=== PATIENT | male | born 1980 | race Two or more races ===

== ENCOUNTER 2020-04-14 21:42 | Inpatient (IN) | payer MEDICAID ==
[~2020-04-14] VITALS: Ht 149.9 cm; Wt 29.1 kg
[2020-04-14] MEDS ORDERED: SODIUM CHLORIDE 0.9% 1,000 ML IV ONE (22:30)
[2020-04-14 23:40] LABS: Basophils # (auto) 0 10 ^3/uL (0-0.2); Basophils % (auto) 0.2 % (0.0-2.0); Eosinophils # (auto) 0 10 ^3/uL (0-0.8); Eosinophils % (auto) 1.2 % (0.0-7.0); Hematocrit 42.2 % (41.0-53.0); Hemoglobin 14.4 g/dL (13.5-17.5); Lymphocytes # (auto) 1.1 10 ^3/uL (0.4-5.4); Lymphocytes % (auto) 26.8 % (10.0-50.0); Mean Corpuscular Hemoglobin 31.7 pg (28.0-32.0); Mean Corpuscular Hgb Conc. 34.2 g/dL (32.0-36.0); Mean Corpuscular Volume 92.6 fL (80.0-100.0); Monocytes # (auto) 0.4 10 ^3/uL (0-1.3); Monocytes % (auto) 8.8 % (0.0-12.0); Neutrophils # (auto) 2.5 10 ^3/uL (1.6-8.6); Nucleated Red Blood Cells % 0.1 %; Platelet Count (auto) 90 10^3/uL (140-450); Red Blood Cells 4.56 10^6/uL (4.5-5.90); Red Cell Distribution Width 14.6 % (11.8-14.3)
[2020-04-15] LABS: Albumin 3.2 g/dL (3.4-5.0); Calcium 8.8 mg/dL (8.5-10.1); Potassium 3.5 mmol/L (3.5-5.1)
[2020-04-15 00:03] LABS: BUN/Creatinine Ratio 29.6; Bilirubin, Total 0.3 mg/dL (0.2-1.0); Total Protein 8.2 g/dL (6.4-8.2)
[2020-04-15] MEDS ORDERED: levoFLOXacin 750MG 150 ML IV ONE (02:00)
[2020-04-15] MEDS ORDERED: SODIUM CHLORIDE 0.9% 1,000 ML IV ONE (02:00)
[2020-04-15 03:06] LABS: Lactic Acid w/Reflex 2.1 mmol/L (0.4-2.0)
[2020-04-15] MEDS ORDERED: LEVE100S9 PO (06:58)
[2020-04-15] MEDS ORDERED: PHEN32.44 PO (06:58)
[2020-04-15] MEDS ORDERED: DOCUSATE SOD 100 MG CAP PO PRN (07:00)
[2020-04-15] MEDS ORDERED: NITROGLYCERIN 0.4 MG SL TAB SL PRN (07:00)
[2020-04-15] MEDS ORDERED: HYDROcodone-ACET 5/325MG TAB PO PRN (07:00)
[2020-04-15] MEDS ORDERED: ONDANSETRON HCL 4 MG/2 ML VIAL IV PRN (07:00)
[2020-04-15] MEDS ORDERED: MORPHINE SULF INJ 2 MG/ML SYRINGE 1ML IV PRN (07:00)
[2020-04-15] MEDS ORDERED: ACETAMINOPHEN 325 MG TAB PO PRN (07:00)
[2020-04-15] MEDS ORDERED: MORPHINE SULFATE 4 MG/ML SYR/VIAL IV PRN (07:00)
[2020-04-15] MEDS: Ensure Enlive Chocolate 8oz Bottle PO SCH ×4 (08:00→18:53)
[2020-04-15 10:39] LABS: CRP High Sensitivity 7.67 mg/dL (< 0.3)
[2020-04-15] MEDS: levETIRAcetam 500 MG/5ML ORAL SOLN UD PO SCH ×2 (11:08→23:35)
[2020-04-15] MEDS: AZITHROMYCIN 500MG/ 250ML 250 ML IV SCH (11:08)
[2020-04-15] MEDS: ZINC SULFATE 220mg CAP or TAB PO SCH (11:26)
[2020-04-15] MEDS: FAMOTIDINE 20 MG TAB PO SCH ×2 (11:26→23:35)
[2020-04-15] MEDS: ASCORBIC ACID 500 MG TAB PO SCH ×2 (11:26→23:35)
[2020-04-15] MEDS: MULTIPLE VITAMIN TAB PO SCH (11:26)
[2020-04-15] MEDS: PHENobarbital 32.4 MG TAB PO SCH (23:34)
[2020-04-16 08:44] LABS: Basophils # (auto) 0 10 ^3/uL (0-0.2); Basophils % (auto) 0.3 % (0.0-2.0); Eosinophils # (auto) 0 10 ^3/uL (0-0.8); Eosinophils % (auto) 1.7 % (0.0-7.0); Hematocrit 38.5 % (41.0-53.0); Hemoglobin 12.9 g/dL (13.5-17.5); Lymphocytes # (auto) 1.1 10 ^3/uL (0.4-5.4); Lymphocytes % (auto) 42.5 % (10.0-50.0); Mean Corpuscular Hemoglobin 31.3 pg (28.0-32.0); Mean Corpuscular Hgb Conc. 33.5 g/dL (32.0-36.0); Mean Corpuscular Volume 93.6 fL (80.0-100.0); Monocytes # (auto) 0.2 10 ^3/uL (0-1.3); Monocytes % (auto) 9.3 % (0.0-12.0); Neutrophils # (auto) 1.2 10 ^3/uL (1.6-8.6); Neutrophils % (auto) 46.2 % (37.0-80.0); Nucleated Red Blood Cells % 0.3 %; Platelet Count (auto) 109 10^3/uL (140-450); Red Blood Cells 4.12 10^6/uL (4.5-5.90); Red Cell Distribution Width 14.6 % (11.8-14.3); White Blood Cell 2.6 10^3/uL (4.4-10.8)
[2020-04-16 09:01] LABS: Albumin 2.8 g/dL (3.4-5.0); Calcium 8.5 mg/dL (8.5-10.1); Magnesium 2.1 mg/dL (1.6-2.6)
[2020-04-16 09:09] LABS: Bilirubin, Total 0.3 mg/dL (0.2-1.0); CRP High Sensitivity 3.74 mg/dL (< 0.3); Phosphorus 1.7 mg/dL (2.5-4.90); Total Protein 7.2 g/dL (6.4-8.2)
[2020-04-16 09:16] LABS: Potassium 2.9 mmol/L (3.5-5.1)
[2020-04-16] MEDS: POTASSIUM EFFERVESENT TAB 25 MEQ GT ONE ×2 (09:45→10:10)
[2020-04-16] MEDS: MULTIPLE VITAMIN TAB PO SCH (10:00)
[2020-04-16] MEDS: AZITHROMYCIN 500MG/ 250ML 250 ML IV SCH (10:10)
[2020-04-16] MEDS: Ensure Enlive Chocolate 8oz Bottle PO SCH ×3 (10:10→18:54)
[2020-04-16] MEDS: FAMOTIDINE 20 MG TAB PO SCH ×2 (10:12→22:50)
[2020-04-16] MEDS: ZINC SULFATE 220mg CAP or TAB PO SCH (10:13)
[2020-04-16] MEDS: levETIRAcetam 500 MG/5ML ORAL SOLN UD PO SCH ×2 (10:56→22:47)
[2020-04-16] MEDS: ASCORBIC ACID 500 MG TAB PO SCH ×2 (11:02→22:50)
[2020-04-16] MEDS ORDERED: POTASSIUM EFFERVESENT TAB 25 MEQ GT ONE ×2 (14:00→14:30)
[2020-04-16] MEDS: PHENobarbital 32.4 MG TAB PO SCH (22:47)
[2020-04-17] VITALS: BP 117/71
[2020-04-17 00:25] VITALS: BP 121/77
[2020-04-17] MEDS: Ensure Enlive Chocolate 8oz Bottle PO SCH ×3 (07:35→18:00)
[2020-04-17 07:51] VITALS: BP 116/64
[2020-04-17] MEDS: FAMOTIDINE 20 MG TAB PO SCH ×2 (10:00→22:51)
[2020-04-17] MEDS: ZINC SULFATE 220mg CAP or TAB PO SCH (10:20)
[2020-04-17] MEDS: MULTIPLE VITAMIN TAB PO SCH (10:22)
[2020-04-17] MEDS: AZITHROMYCIN 500MG/ 250ML 250 ML IV SCH (10:22)
[2020-04-17] MEDS: ASCORBIC ACID 500 MG TAB PO SCH ×2 (10:22→22:51)
[2020-04-17] MEDS: levETIRAcetam 500 MG/5ML ORAL SOLN UD PO SCH ×2 (10:39→22:51)
[2020-04-17] MEDS ORDERED: POTASSIUM PHOSPHATE 44 MEQ in D5W 5% 250 ML IV ONE (15:30)
[2020-04-17] MEDS ORDERED: POTASSIUM CHL 20MEQ/100ML 100 ML IV ONE (15:30)
[2020-04-17 16:00] VITALS: BP 118/77
[2020-04-17] MEDS: PHENobarbital 32.4 MG TAB PO SCH (22:51)
[2020-04-18] VITALS: BP 117/71
[2020-04-18 00:07] VITALS: BP 117/71
[2020-04-18 07:26] LABS: Magnesium 2.1 mg/dL (1.6-2.6)
[2020-04-18 07:29] LABS: Phosphorus 3.8 mg/dL (2.5-4.90)
[2020-04-18] MEDS: Ensure Enlive Chocolate 8oz Bottle PO SCH (07:40)
[2020-04-18 08:00] VITALS: BP 135/78
[2020-04-18] MEDS: AZITHROMYCIN 500MG/ 250ML 250 ML IV SCH (10:18)
[2020-04-18] MEDS: ZINC SULFATE 220mg CAP or TAB PO SCH (10:18)
[2020-04-18] MEDS: FAMOTIDINE 20 MG TAB PO SCH (10:18)
[2020-04-18] MEDS: MULTIPLE VITAMIN TAB PO SCH (10:19)
[2020-04-18] MEDS: ASCORBIC ACID 500 MG TAB PO SCH (10:20)
[2020-04-18] MEDS: levETIRAcetam 500 MG/5ML ORAL SOLN UD PO SCH (10:20)
[2020-04-18 11:37] VITALS: BP 130/70
[2020-04-18 12:49] LABS: Basophils # (auto) 0 10 ^3/uL (0-0.2); Basophils % (auto) 0.4 % (0.0-2.0); Eosinophils # (auto) 0.1 10 ^3/uL (0-0.8); Eosinophils % (auto) 4.4 % (0.0-7.0); Hematocrit 38.1 % (41.0-53.0); Hemoglobin 13.1 g/dL (13.5-17.5); Lymphocytes # (auto) 1.1 10 ^3/uL (0.4-5.4); Lymphocytes % (auto) 41.5 % (10.0-50.0); Mean Corpuscular Hemoglobin 31.4 pg (28.0-32.0); Mean Corpuscular Hgb Conc. 34.3 g/dL (32.0-36.0); Mean Corpuscular Volume 91.7 fL (80.0-100.0); Monocytes # (auto) 0.2 10 ^3/uL (0-1.3); Monocytes % (auto) 9.1 % (0.0-12.0); Neutrophils # (auto) 1.2 10 ^3/uL (1.6-8.6); Neutrophils % (auto) 44.6 % (37.0-80.0); Nucleated Red Blood Cells % 0.2 %; Platelet Count (auto) 141 10^3/uL (140-450); Red Blood Cells 4.15 10^6/uL (4.5-5.90); Red Cell Distribution Width 14.3 % (11.8-14.3); White Blood Cell 2.7 10^3/uL (4.4-10.8)
== END 2020-04-18 13:40 | disposition home or self-care (01) | DRG 137 ==
LOC: ER 21:44 → OVERFLOW 21:45 → TELE-EAST 04-16 23:19
PROVIDERS: ADMIT Nurse Practitioner; ATTEND Nurse Practitioner
DX: U07.1 COVID-19 (principal); J12.82 Pneumonia due to coronavirus disease 2019; G80.9 Cerebral palsy, unspecified; E86.0 Dehydration; J98.11 Atelectasis; G40.901 Epilepsy, unspecified, not intractable, with status epilepticus; R53.2 Functional quadriplegia; R63.6 Underweight; R19.7 Diarrhea, unspecified; R64 Cachexia; R00.0 Tachycardia, unspecified; Z74.01 Bed confinement status; Z68.1 Body mass index [BMI] 19.9 or less, adult; Z91.81 History of falling; Z88.0 Allergy status to penicillin
CPT/HCPCS: 36415; 71045; 71250; 80053; 82728; 83605; 83615; 83735; 84100; 84132; 85025; 85379; 86141; 87040; 87426; 93005; 93306; 93970; 96361; 96365; 96367; G0378; J1956; J7060

== ENCOUNTER 2020-05-12 00:39 | Inpatient (IN) | payer MEDICAID ==
[~2020-05-12] VITALS: Ht 139.7 cm; Wt 39.7 kg
[~2020-05-12 00:39] MED LIST: LEVE100S9 GT; PHEN32.44 GT
[2020-05-12] MEDS: SODIUM CHLORIDE 0.9% 500 ML IV ONE ×2 (02:00→03:33)
[2020-05-12 02:26] LABS: Basophils # (auto) 0 10 ^3/uL (0-0.2); Basophils % (auto) 0.4 % (0.0-2.0); Eosinophils # (auto) 0 10 ^3/uL (0-0.8); Hematocrit 44.9 % (41.0-53.0); Hemoglobin 15.1 g/dL (13.5-17.5); Lymphocytes # (auto) 1.7 10 ^3/uL (0.4-5.4); Lymphocytes % (auto) 16.3 % (10.0-50.0); Mean Corpuscular Hgb Conc. 33.7 g/dL (32.0-36.0); Mean Corpuscular Volume 92.1 fL (80.0-100.0); Monocytes # (auto) 0.6 10 ^3/uL (0-1.3); Monocytes % (auto) 5.6 % (0.0-12.0); Neutrophils % (auto) 77.7 % (37.0-80.0); Nucleated Red Blood Cells % 0.4 %; Platelet Count (auto) 121 10^3/uL (140-450); Red Blood Cells 4.87 10^6/uL (4.5-5.90); Red Cell Distribution Width 15.2 % (11.8-14.3); White Blood Cell 10.3 10^3/uL (4.4-10.8)
[2020-05-12 02:46] LABS: Alanine Aminotransferase 41 U/L (16-61); Albumin 3.8 g/dL (3.4-5.0); Anion Gap 7 (5-15); BUN/Creatinine Ratio 35.1; Blood Alcohol < 3.0 mg/dL (0-5); Blood Urea Nitrogen 27 mg/dL (7-18); Calcium 9.2 mg/dL (8.5-10.1); Carbon Dioxide 26 mmol/L (21-32); Chloride 104 mmol/L (98-107); GFR African American 145 mL/min; GFR Non-African American 120 mL/min; Glucose 98 mg/dL (74-106); Magnesium 2.1 mg/dL (1.6-2.6); Potassium 3.6 mmol/L (3.5-5.1); Sodium 137 mmol/L (136-145)
[2020-05-12 02:49] LABS: Alcohol, Urine < 3.0 mg/dL (0-10); Amphetamine Screen, Urine NEGATIVE (NEGATIVE); Barbiturate Scree,Urine POSITIVE (NEGATIVE); Benzodiazephine Screen, Urine NEGATIVE (NEGATIVE); Cannabinoid Screen, Urine NEGATIVE (NEGATIVE); Cocaine Screen, Urine NEGATIVE (NEGATIVE); Opiate Scree,Urine NEGATIVE (NEGATIVE); Phencyclidine Screen, Urine NEGATIVE (NEGATIVE)
[2020-05-12 02:51] LABS: INR 1.23 (0.9-1.15); Partial Thromboplastin Time 24.4 sec (23.0-31.2)
[2020-05-12 02:53] LABS: Alkaline Phosphatase 210 U/L (45-117); Aspartate Aminotransferase 30 U/L (15-37); Bilirubin, Total 0.2 mg/dL (0.2-1.0); Total Protein 8.3 g/dL (6.4-8.2)
[2020-05-12 02:56] LABS: Urine Amorphous Crystal MOD /hpf (None Seen); Urine Bacteria FEW /hpf (None Seen); Urine Blood Negative /uL (Negative); Urine Hyaline Cast FEW /lpf (0 - 2); Urine Specific Gravity 1.016 (1.001-1.035); Urine WBC 1 /hpf (0 - 3)
[2020-05-12 03:09] LABS: Lactate Dehydrogenase 250 U/L (87-241)
[2020-05-12] MEDS ORDERED: IOHEXOL 350 MG/ML 100ML IJ ONE (03:44)
[2020-05-12] MEDS ORDERED: metroNIDAZOLE 500MG/100ML 100 ML IV ONE (05:15)
[2020-05-12] MEDS ORDERED: SODIUM CHLORIDE 0.9% 500 ML IV ONE (05:15)
[2020-05-12] MEDS ORDERED: CEFTRIAXONE SODIUM 2 GM in D5W 5% 50 ML IV ONE (05:15)
[2020-05-12] MEDS ORDERED: SODIUM CHLORIDE 0.9% 1,000 ML IV ONE (07:30)
[2020-05-12] MEDS: MULTIPLE VITAMIN TAB PO SCH (08:52)
[2020-05-12] MEDS: DOCUSATE SOD 100 MG CAP PO SCH ×2 (08:52→22:00)
[2020-05-12] MEDS: FAMOTIDINE 20 MG TAB PO SCH ×2 (08:53→22:54)
[2020-05-12] MEDS: ASCORBIC ACID 500 MG TAB PO SCH ×2 (08:53→22:55)
[2020-05-12] MEDS ORDERED: IPRA0.00 IN (10:17)
[2020-05-12] MEDS ORDERED: CHOL20007 GT (10:17)
[2020-05-12] MEDS: AZITHROMYCIN 500MG/ 250ML 250 ML IV SCH (10:19)
[2020-05-12] MEDS: Ensure HIGH Protein Vanilla 8oz Bottle PO SCH ×3 (12:00→22:54)
[2020-05-12] MEDS: levETIRAcetam 500 MG/5ML ORAL SOLN UD GT SCH ×2 (12:45→22:53)
[2020-05-12 16:28] VITALS: BP 153/89
[2020-05-12 22:00] VITALS: BP 135/83
[2020-05-12] MEDS ORDERED: PHENobarbital 32.4 MG TAB PO SCH (22:00)
[2020-05-12] MEDS: PHENobarbital 32.4 MG TAB PO SCH (22:54)
[2020-05-13 05:00] VITALS: BP 119/69
[2020-05-13] MEDS: Ensure HIGH Protein Vanilla 8oz Bottle PO SCH ×4 (05:49→23:30)
[2020-05-13 06:27] LABS: Basophils # (auto) 0 10 ^3/uL (0-0.2); Basophils % (auto) 1.1 % (0.0-2.0); Eosinophils # (auto) 0 10 ^3/uL (0-0.8); Eosinophils % (auto) 0.4 % (0.0-7.0); Hematocrit 40.8 % (41.0-53.0); Hemoglobin 13.5 g/dL (13.5-17.5); Lymphocytes # (auto) 1.5 10 ^3/uL (0.4-5.4); Lymphocytes % (auto) 41.4 % (10.0-50.0); Mean Corpuscular Hemoglobin 31.4 pg (28.0-32.0); Mean Corpuscular Hgb Conc. 33.1 g/dL (32.0-36.0); Mean Corpuscular Volume 94.8 fL (80.0-100.0); Monocytes # (auto) 0.3 10 ^3/uL (0-1.3); Monocytes % (auto) 7.1 % (0.0-12.0); Neutrophils # (auto) 1.8 10 ^3/uL (1.6-8.6); Nucleated Red Blood Cells % 0.3 %; Platelet Count (auto) 83 10^3/uL (140-450); Red Cell Distribution Width 15.4 % (11.8-14.3); White Blood Cell 3.7 10^3/uL (4.4-10.8)
[2020-05-13] MEDS ORDERED: VANCOMYCIN PER PHARMACY 0 MG IV SCH (06:30)
[2020-05-13 06:46] LABS: Potassium 3.4 mmol/L (3.5-5.1)
[2020-05-13 07:06] LABS: Albumin 2.9 g/dL (3.4-5.0); Bilirubin, Total 0.4 mg/dL (0.2-1.0); Calcium 8.1 mg/dL (8.5-10.1); Total Protein 6.8 g/dL (6.4-8.2)
[2020-05-13 07:58] VITALS: BP 143/75
[2020-05-13] MEDS ORDERED: cefTRIAXone 1GM/50ML D5W 50 ML IV SCH (09:00)
[2020-05-13] MEDS: DOCUSATE SOD 100 MG CAP PO SCH ×2 (11:02→21:37)
[2020-05-13] MEDS: AZITHROMYCIN 500MG/ 250ML 250 ML IV SCH (11:02)
[2020-05-13] MEDS: FAMOTIDINE 20 MG TAB PO SCH ×2 (11:03→21:41)
[2020-05-13] MEDS: ASCORBIC ACID 500 MG TAB PO SCH ×2 (11:03→21:40)
[2020-05-13] MEDS: MULTIPLE VITAMIN TAB PO SCH (11:03)
[2020-05-13] MEDS: levETIRAcetam 500 MG/5ML ORAL SOLN UD GT SCH ×2 (11:58→21:36)
[2020-05-13] MEDS: VANCOMYCIN 750mg/250ml 250 ML IV SCH ×2 (11:58→21:36)
[2020-05-13 16:41] VITALS: BP 135/81
[2020-05-13] MEDS: PHENobarbital 32.4 MG TAB PO SCH (21:36)
[2020-05-13 22:00] VITALS: BP 138/79
[2020-05-14] MEDS: VANCOMYCIN 750mg/250ml 250 ML IV SCH (03:37)
[2020-05-14 05:00] VITALS: BP 118/55
[2020-05-14] MEDS: Ensure HIGH Protein Vanilla 8oz Bottle PO SCH ×4 (06:33→22:32)
[2020-05-14 07:23] LABS: BUN/Creatinine Ratio 19.4; Calcium 8.7 mg/dL (8.5-10.1); Potassium 3.5 mmol/L (3.5-5.1)
[2020-05-14 08:07] LABS: Basophils # (auto) 0 10 ^3/uL (0-0.2); Basophils % (auto) 0.6 % (0.0-2.0); Eosinophils # (auto) 0 10 ^3/uL (0-0.8); Eosinophils % (auto) 0.5 % (0.0-7.0); Hematocrit 46.6 % (41.0-53.0); Hemoglobin 15.4 g/dL (13.5-17.5); Lymphocytes # (auto) 1.7 10 ^3/uL (0.4-5.4); Lymphocytes % (auto) 40.6 % (10.0-50.0); Mean Corpuscular Hgb Conc. 33.1 g/dL (32.0-36.0); Mean Corpuscular Volume 93.5 fL (80.0-100.0); Monocytes # (auto) 0.2 10 ^3/uL (0-1.3); Monocytes % (auto) 5.2 % (0.0-12.0); Neutrophils # (auto) 2.3 10 ^3/uL (1.6-8.6); Neutrophils % (auto) 53.1 % (37.0-80.0); Nucleated Red Blood Cells % 0.3 %; Platelet Count (auto) 91 10^3/uL (140-450); Red Blood Cells 4.98 10^6/uL (4.5-5.90); Red Cell Distribution Width 15.6 % (11.8-14.3); White Blood Cell 4.3 10^3/uL (4.4-10.8)
[2020-05-14 08:51] VITALS: BP 133/84
[2020-05-14] MEDS: levETIRAcetam 500 MG/5ML ORAL SOLN UD GT SCH ×2 (09:59→22:31)
[2020-05-14] MEDS: FAMOTIDINE 20 MG TAB PO SCH ×2 (09:59→22:31)
[2020-05-14] MEDS: AZITHROMYCIN 500MG/ 250ML 250 ML IV SCH (09:59)
[2020-05-14] MEDS: MULTIPLE VITAMIN TAB PO SCH (09:59)
[2020-05-14] MEDS: ASCORBIC ACID 500 MG TAB PO SCH ×2 (10:00→22:32)
[2020-05-14] MEDS: DOCUSATE SOD 100 MG CAP PO SCH ×2 (10:00→22:00)
[2020-05-14] MEDS ORDERED: LACTULOSE 20Gm/30ML SOLN PO PRN (11:15)
[2020-05-14] MEDS ORDERED: LACTULOSE 20Gm/30ML SOLN PO ONE (11:15)
[2020-05-14] MEDS: DOXYCYCLINE 100MG/250ML 250 ML IV SCH ×2 (12:07→22:32)
[2020-05-14 13:21] VITALS: BP 129/72
[2020-05-14 16:38] VITALS: BP 128/72
[2020-05-14 22:00] VITALS: BP 135/83
[2020-05-14] MEDS: PHENobarbital 32.4 MG TAB PO SCH (22:31)
[2020-05-14] MEDS: ALBUTEROL SULF 2.5 MG/0.5ML(0.5%) NEB SOLN NEB SCH (22:40)
[2020-05-14 23:15] VITALS: BP 135/83
[2020-05-15] MEDS: ALBUTEROL SULF 2.5 MG/0.5ML(0.5%) NEB SOLN NEB SCH ×3 (02:14→09:58)
[2020-05-15 05:00] VITALS: BP 145/83
[2020-05-15] MEDS: Ensure HIGH Protein Vanilla 8oz Bottle PO SCH ×2 (06:17→11:26)
[2020-05-15 08:00] VITALS: BP 146/92
[2020-05-15] MEDS: levETIRAcetam 500 MG/5ML ORAL SOLN UD GT SCH (09:09)
[2020-05-15] MEDS: MULTIPLE VITAMIN TAB PO SCH (09:10)
[2020-05-15] MEDS: FAMOTIDINE 20 MG TAB PO SCH (09:10)
[2020-05-15] MEDS: ASCORBIC ACID 500 MG TAB PO SCH (09:10)
[2020-05-15] MEDS: DOXYCYCLINE 100MG/250ML 250 ML IV SCH (10:52)
[2020-05-15] MEDS ORDERED: DOCUSATE ORAL LIQUID 100 MG/10 ML UD PO SCH (11:00)
[2020-05-15 12:00] VITALS: BP 114/74
[2020-05-15 12:04] VITALS: BP 114/74
== END 2020-05-15 13:50 | disposition home or self-care (01) | DRG 137 ==
LOC: ER 00:39 → TELE 00:40 → TELE-WESTW 14:07
PROVIDERS: ADMIT Nurse Practitioner; ATTEND Nurse Practitioner
DX: U07.1 COVID-19 (principal); J69.0 Pneumonitis due to inhalation of food and vomit; G80.9 Cerebral palsy, unspecified; R47.01 Aphasia; R00.0 Tachycardia, unspecified; G40.901 Epilepsy, unspecified, not intractable, with status epilepticus; J98.11 Atelectasis; K59.00 Constipation, unspecified; N20.0 Calculus of kidney; Z83.3 Family history of diabetes mellitus; Z74.01 Bed confinement status; Z82.49 Family history of ischemic heart disease and other diseases of the circulatory system; Z87.442 Personal history of urinary calculi
CPT/HCPCS: 36415; 71045; 71275; 80048; 80053; 80202; 80307; 80320; 81001; 83605; 83615; 83690; 83735; 83880; 84443; 84484; 85025; 85379; 85610; 85730; 87040; 87077; 87081; 87086; 87186; 87426; 93005; 93306; 94640; 94667; 94668; 96360; G0378; J0696; J3490; J7060

== ENCOUNTER 2020-09-06 15:53 | Emergency (ER) | payer MEDICAID ==
[~2020-09-06] VITALS: Ht 139.7 cm; Wt 29.0 kg
[~2020-09-06 15:53] MED LIST changes: +CHOL20007 GT; +IPRA0.00 IN
[2020-09-06 17:06] LABS: Basophils # (auto) 0 10 ^3/uL (0-0.2); Basophils % (auto) 0.3 % (0.0-2.0); Eosinophils # (auto) 0.1 10 ^3/uL (0-0.8); Eosinophils % (auto) 1.2 % (0.0-7.0); Hematocrit 46.5 % (41.0-53.0); Lymphocytes # (auto) 1.3 10 ^3/uL (0.4-5.4); Lymphocytes % (auto) 13.5 % (10.0-50.0); Mean Corpuscular Hemoglobin 32.9 pg (28.0-32.0); Mean Corpuscular Hgb Conc. 34.4 g/dL (32.0-36.0); Mean Corpuscular Volume 95.7 fL (80.0-100.0); Monocytes # (auto) 0.6 10 ^3/uL (0-1.3); Monocytes % (auto) 6.3 % (0.0-12.0); Neutrophils # (auto) 7.6 10 ^3/uL (1.6-8.6); Neutrophils % (auto) 78.7 % (37.0-80.0); Nucleated Red Blood Cells % 0.3 %; Platelet Count (auto) 106 10^3/uL (140-450); Red Blood Cells 4.86 10^6/uL (4.5-5.90); Red Cell Distribution Width 13.9 % (11.8-14.3); White Blood Cell 9.7 10^3/uL (4.4-10.8)
[2020-09-06 17:31] LABS: Chloride 105 mmol/L (98-107); Potassium 4.4 mmol/L (3.5-5.1); Sodium 136 mmol/L (136-145)
[2020-09-06 17:32] LABS: Alkaline Phosphatase 243 U/L (45-117); Anion Gap 9 (5-15); Aspartate Aminotransferase 45 U/L (15-37); BUN/Creatinine Ratio 36.8; Blood Urea Nitrogen 28 mg/dL (7-18); Calcium 8.8 mg/dL (8.5-10.1); Carbon Dioxide 22 mmol/L (21-32); GFR African American 148 mL/min; GFR Non-African American 122 mL/min; Glucose 102 mg/dL (74-106); Lipase 216 U/L (73-393)
[2020-09-06 17:33] LABS: Alanine Aminotransferase 81 U/L (16-61); Albumin 3.3 g/dL (3.4-5.0); Bilirubin, Total 0.4 mg/dL (0.2-1.0); Total Protein 7.7 g/dL (6.4-8.2)
[2020-09-06] MEDS ORDERED: KETOROLAC TROMETH 30 MG/ML 1ML VIAL IV ONE (18:00)
[2020-09-06] MEDS ORDERED: SODIUM CHLORIDE 0.9% 1,000 ML IV ONE (18:00)
[2020-09-06] MEDS ORDERED: TAMSULOSIN HYDROCHLORIDE 0.4 MG CAP PO ONE (18:00)
[2020-09-06] MEDS ORDERED: cefTRIAXone 1GM/50ML D5W 50 ML IV ONE (18:00)
[2020-09-06 21:34] VITALS: BP 122/75
== END 2020-09-06 21:37 | disposition home or self-care (01) ==
LOC: ER 15:53
DX: N20.0 Calculus of kidney (principal); R10.84 Generalized abdominal pain; I10 Essential (primary) hypertension; Z88.0 Allergy status to penicillin; Z79.899 Other long term (current) drug therapy
CPT/HCPCS: 36415; 74176; 80053; 83690; 85025; 96365; 96366; 96375; 99284; J0696; J1885; J7030

== ENCOUNTER 2021-11-21 03:40 | Emergency (ER) | payer MEDICAID ==
[2021-11-21 06:48] LABS: Basophils # (auto) 0 10 ^3/uL (0-0.2); Basophils % (auto) 0.3 % (0.0-2.0); Eosinophils # (auto) 0.1 10 ^3/uL (0-0.8); Neutrophils # (auto) 3.8 10 ^3/uL (1.6-8.6); Nucleated Red Blood Cells % 0.1 %; White Blood Cell 5.4 10^3/uL (4.4-10.8)
[2021-11-21 06:51] LABS: Eosinophils % (auto) 1.6 % (0.0-7.0); Hematocrit 52.8 % (41.0-53.0); Hemoglobin 17.4 g/dL (13.5-17.5); Lymphocytes # (auto) 1.2 10 ^3/uL (0.4-5.4); Lymphocytes % (auto) 21.7 % (10.0-50.0); Mean Corpuscular Hemoglobin 31.1 pg (28.0-32.0); Mean Corpuscular Volume 94.2 fL (80.0-100.0); Monocytes # (auto) 0.3 10 ^3/uL (0-1.3); Monocytes % (auto) 6.4 % (0.0-12.0); Red Blood Cells 5.61 10^6/uL (4.5-5.90); Red Cell Distribution Width 14.1 % (11.8-14.3)
[2021-11-21 07:11] LABS: Calcium 9.3 mg/dL (8.5-10.1); Magnesium 2.4 mg/dL (1.6-2.6); Potassium 3.7 mmol/L (3.5-5.1)
[2021-11-21 07:14] LABS: BUN/Creatinine Ratio 39.1; Bilirubin, Total 0.4 mg/dL (0.2-1.0)
[2021-11-21] MEDS ORDERED: SODIUM CHLORIDE 0.9% 500 ML IVB ONE (11:15)
[2021-11-21] MEDS ORDERED: SODIUM CHLORIDE 0.9% 1,000 ML IV ONE (11:15)
[2021-11-21 12:46] LABS: Urine Bacteria NONE SEEN /hpf (None Seen); Urine Blood Negative /uL (Negative); Urine Specific Gravity 1.015 (1.001-1.035); Urine WBC 2 /hpf (0 - 3)
[2021-11-21 13:59] VITALS: BP 160/95
== END 2021-11-21 14:00 | disposition home or self-care (01) ==
LOC: ER 03:40
DX: G80.9 Cerebral palsy, unspecified (principal); R53.1 Weakness; G40.909 Epilepsy, unspecified, not intractable, without status epilepticus; I10 Essential (primary) hypertension
CPT/HCPCS: 36415; 71045; 80053; 81001; 82542; 83690; 83735; 85025; 96360; 96361; 99285; J7030; J7040

== ENCOUNTER 2021-12-14 06:48 | Emergency (ER) | payer MEDICAID ==
[~2021-12-14] VITALS: Ht 139.7 cm; Wt 31.0 kg
[2021-12-14 07:28] VITALS: BP 127/62
== END 2021-12-14 15:02 | disposition home or self-care (01) ==
LOC: ER 06:48
DX: G80.9 Cerebral palsy, unspecified (principal); I10 Essential (primary) hypertension; Z87.442 Personal history of urinary calculi; Z88.0 Allergy status to penicillin

== ENCOUNTER 2023-03-09 08:11 | Emergency (ER) | payer MEDICAID ==
[~2023-03-09] VITALS: Ht 139.7 cm; Wt 35.0 kg
[~2023-03-09 08:11] MED LIST changes: -LEVE100S9 GT; +LEVE5SOL GT
[2023-03-09 08:35] VITALS: PULSE 101; RESP 18; TEMP 98; O2SAT 96
[2023-03-09 10:00] VITALS: BP 174/89; PULSE 100; RESP 17; O2SAT 96
== END 2023-03-09 12:17 | disposition home or self-care (01) ==
LOC: ER 08:11
DX: J20.9 Acute bronchitis, unspecified (principal); G80.9 Cerebral palsy, unspecified; R07.89 Other chest pain; I10 Essential (primary) hypertension; Z79.899 Other long term (current) drug therapy; Z88.0 Allergy status to penicillin
CPT/HCPCS: 71045

== ENCOUNTER 2023-03-23 07:25 | Emergency (ER) | payer MEDICAID ==
[~2023-03-23] VITALS: Ht 139.7 cm; Wt 30.4 kg
[2023-03-23 09:10] LABS: Basophils # (auto) 0 10 ^3/uL (0-0.2); Basophils % (auto) 0.3 % (0.0-2.0); Eosinophils # (auto) 0.1 10 ^3/uL (0-0.8); Eosinophils % (auto) 1.2 % (0.0-7.0); Hematocrit 53.4 % (41.0-53.0); Lymphocytes # (auto) 0.9 10 ^3/uL (0.4-5.4); Lymphocytes % (auto) 10.5 % (10.0-50.0); Mean Corpuscular Hemoglobin 31.6 pg (28.0-32.0); Mean Corpuscular Hgb Conc. 33.7 g/dL (32.0-36.0); Mean Corpuscular Volume 93.9 fL (80.0-100.0); Monocytes # (auto) 0.5 10 ^3/uL (0-1.3); Monocytes % (auto) 6.2 % (0.0-12.0); Neutrophils % (auto) 81.8 % (37.0-80.0); Nucleated Red Blood Cells % 0.4 %; Red Blood Cells 5.69 10^6/uL (4.5-5.90); White Blood Cell 8.5 10^3/uL (4.4-10.8)
[2023-03-23 09:22] LABS: Alanine Aminotransferase 63 U/L (7-40); Albumin 4.4 g/dL (3.2-4.8); Alkaline Phosphatase 178 U/L (46-116); Anion Gap 10 (5-15); Aspartate Aminotransferase 42 U/L (13-40); BUN/Creatinine Ratio 18.1 (10.0-20.0); Bilirubin, Total 0.5 mg/dL (0.2-1.0); Blood Urea Nitrogen 13 mg/dL (9-23); Calcium 9.8 mg/dL (8.5-10.1); Carbon Dioxide 27 mmol/L (20-30); Chloride 103 mmol/L (98-107); Glucose 100 mg/dL (74-106); Potassium 3.2 mmol/L (3.5-5.1); Sodium 140 mmol/L (136-145)
[2023-03-23 09:23] LABS: Total Protein 7.3 g/dL (5.7-8.2)
[2023-03-23] MEDS ORDERED: ACETAMINOPHEN 325 MG TAB PO ONE (15:45)
[2023-03-23] MEDS ORDERED: ACETAMINOPHEN 650 mg PER 20.3 mL UD PO ONE (15:45)
[2023-03-23 17:37] LABS: Urine Bacteria FEW /hpf (None Seen); Urine Blood Negative /uL (Negative); Urine Clarity Clear (Clear); Urine Color Yellow (Yellow); Urine Mucus FEW (None Seen); Urine Protein, UAD 1+ (Negative); Urine Specific Gravity 1.019 (1.001-1.035); Urine WBC 1 /hpf (0 - 3)
[2023-03-23] MEDS ORDERED: NITR-87 PO (17:39)
[2023-03-23 17:43] VITALS: BP 138/84; PULSE 134; RESP 26; O2SAT 96
[2023-03-23 17:48] VITALS: TEMP 99.9
== END 2023-03-23 18:06 | disposition home or self-care (01) ==
LOC: ER 07:25
DX: N39.0 Urinary tract infection, site not specified (principal); G80.9 Cerebral palsy, unspecified; I10 Essential (primary) hypertension; Z88.0 Allergy status to penicillin; Z87.442 Personal history of urinary calculi
CPT/HCPCS: 36415; 51702; 71045; 80053; 81001; 83605; 85025; 87040

== ENCOUNTER 2024-12-30 23:28 | Emergency (ER) | payer MEDICAID ==
[~2024-12-30] VITALS: Ht 121.9 cm; Wt 32.0 kg
[~2024-12-30 23:28] MED LIST changes: +NITR-87 PO
[2024-12-31 00:06] VITALS: TEMP 98
[2024-12-31 00:15] VITALS: PULSE 106; RESP 16; O2SAT 98
--- NOTE | 2024-12-31 00:37 | DVH ---
CHEST RADIOGRAPH Indication: cough Technique: Frontal view of the chest was obtained Comparison: XY CHEST PORTABLE on DOS: 03/23/23, XY CHEST PORTABLE on DOS: 03/09/23, CHEST PORTABLE on DOS: 11/21/21, CHEST XRAY 1 VIEW on DOS: 05/14/20, CHEST PORTABLE on DOS: 05/12/20 FINDINGS/IMPRESSION: Evaluation is suboptimal due to overlying hands and positioning. A repeat radiograph is suggested. T he cardiomediastinal silhouette is unremarkable. No acute osseous abnormality. Visualized portions o f the lower lungs appear unremarkable.
--- NOTE | 2024-12-31 01:07 | ED.PDOC ---
SOB-HPI HPI Comments 44-year-old male brought in by EMS. Mother states patient was having cough and congestion today. She was concerned because the cough sounded very wet. Patient has a history of cerebral palsy. No other symptoms. EMS states that O2 saturation was 97 on room air. Chief Complaint: Cough Time Seen by MD: 23:51 Primary Care Provider: ANTHONY Gupta notes: Nurses Notes Information Source: Emergency Med Personnel Mode of Arrival: EMS Past Medical History PAST MEDICAL HISTORY: HTN, Kidney Stones, Seizures Family History Family History: Reviewed,noncontributory to illness Social History Smoker: Non-Smoker Alcohol: Denies ETOH Use Drugs: Denies Drug Use Lives In: Home Unable to Obtain due to: Altered Mental Status Physical Exam General Appearance: No Apparent Distress, Normal HEENT: Normal ENT Inspection, Pharynx Normal, TMs Normal Neck: Full Range of Motion, Non-Tender, Normal, Normal Inspection Respiratory: Chest Non-Tender, Lungs Clear, No Accessory Muscle Use, No Respiratory Distress, Normal Breath Sounds Cardiovascular: No Edema, No JVD, No Murmur, No Gallop, Normal Peripheral Pulses, Regular Rate/Rhythm Breast Exam: Deferred Gastrointestinal: No Organomegaly, Non Tender, No Pulsatile Mass, Normal Bowel Sounds, Soft Genitalia: Deferred Pelvic: Deferred Rectal: Deferred Extremities: No calf tenderness, Normal capillary refill, NOT DONE Musculoskeletal : Apperance: Normal Neurologic: Alert, lieutenant ballistics II-XII nml as Tested, No Motor Deficits, Normal Affect, Normal Mood, No Sensory Deficits Cerebellar Function: Normal Reflexes: Normal Skin: Dry, Normal Color, Warm Lymphatic: No Adenopathy Was a procedure done? Was a procedure done?: No Differential Dx Differential Diagnosis: Asthma, Bronchitis, Panic Attack, Pneumonia X-Ray, Labs, Meds, VS Vital Signs Date Time Temp Pulse Resp B/P (MAP) Pulse Ox O2 Delivery O2 Flow Rate FiO2 12/31/24 00:15 106 16 98 Room Air* 0 21 12/31/24 00:06 98.0 106 16 132/90 (104) 98 98.0 12/30/24 23:43 99.0 103 20 116/78 97 99.0 X-Ray, Labs, Meds, VS Comment Imaging was reviewed by this provider, there is no obvious pathological or acute disease process. Pending radiology review Labs were reviewed by this provider, no abnormalities Vital signs reviewed by this provider, clinically stable Time of 1ST Reevaluation: 01:50 Reevaluation 1ST: Improved Patient Education/Counseling: Diagnosis, Treatment, Need For Follow Up Family Education/Counseling: Diagnosis, Treatment, Need For Follow Up (Follow up with PCP next available appointment. Return to the emergency department if symptoms worsen.) SEPSIS Sepsis Screen Date sepsis recognized/suspect: Dec 30, 2024 Time Sepsis recognized/suspect: 2348 Recent Procedure: No On Antibiotic Therapy: No Respiratory Rate >20: No Heart Rate >90: Yes Temp<36 C (96.8 F) or >38.3 C: No SBP <90 or MAP <65 mmHG: No New Acute Mental Status Change: No Is the patient on CPAP, BIPAP,: No Physician Orders Chest Two Views Routine (12/30/24 23:52) Vital Signs Date Time Temp Pulse Resp B/P (MAP) Pulse Ox O2 Delivery O2 Flow Rate FiO2 12/31/24 00:15 106 16 98 Room Air* 0 21 12/31/24 00:06 98.0 106 16 132/90 (104) 98 98.0 12/30/24 23:43 99.0 103 20 116/78 97 99.0 Departure 1 Departure Time of Disposition: 01:50 Impression: Primary Impression: URI (upper respiratory infection) Qualified Codes: J06.9 - Acute upper respiratory infection, unspecified Disposition: 01 HOME / SELF CARE / HOMELESS Condition: Stable e-Prescriptions Azithromycin (Zithromax Z-Skip) 250 Mg Tab 250 MG PO DAILY for 5 Days, #5 TAB Prov: DEYA RODRIGUEZ 12/31/24 Discharged With: Relative (Mother) Critical Care Note Critical Care Time?: No Stability Stability form required: No Heart Score Heart Score: Heart Score Response (Comments) Value History N/A 0 EKG N/A 0 Age N/A 0 Risk Factors N/A 0 Troponin N/A 0 Total 0 DEYA RODRIGUEZ Dec 31, 2024 01:07
[2024-12-31] MEDS ORDERED: AZITTAB PO (01:51)
[2024-12-31 02:11] VITALS: BP 132/90; PULSE 105; RESP 13; O2SAT 96
== END 2024-12-31 02:10 | disposition home or self-care (01) ==
LOC: EDBD 23:28 → ER 23:28 → EDSEX 23:28 → ER 12-31 02:10
DX: J06.9 Acute upper respiratory infection, unspecified (principal); I10 Essential (primary) hypertension; Z87.442 Personal history of urinary calculi
CPT/HCPCS: 71046